=== PATIENT | male | born 1985 | race Hispanic/Latino ===

== ENCOUNTER 2016-11-09 20:06 | Emergency (ER) | payer SELFPAY ==
--- NOTE | 2016-11-09 21:57 | RAD ---
THREE VIEWS LEFT FOOT: Date: 11-09-16 History: Dropped a bottle of bleach on foot, left foot pain. FINDINGS: There is no evidence of a fracture, dislocation, or other osseous abnormality involving the left lucio t. IMPRESSION: No acute osseous abnormality. POS: [facility]
== END 2016-11-09 21:09 | disposition home or self-care (01) ==
LOC: NAV ERS 20:06
DX: S90.32XA Contusion of left foot, initial encounter (principal); F17.210 Nicotine dependence, cigarettes, uncomplicated; W20.8XXA Other cause of strike by thrown, projected or falling object, initial encounter; Y92.69 Other specified industrial and construction area as the place of occurrence of the external cause; Y99.0 Civilian activity done for income or pay